=== PATIENT | female | born 1995 | race African-American/Black ===

== ENCOUNTER 2019-01-24 16:22 | Emergency (ER) | payer SELFPAY ==
[~2019-01-24] VITALS: Ht 157.5 cm; Wt 50.3 kg
[2019-01-24 16:32] VITALS: BP 127/85
[2019-01-24] MEDS ORDERED: HYDROcodone/APAP 5/325MG 1 TAB TABLET PO STA (16:36)
[2019-01-24] MEDS ORDERED: LIDOCAINE 2% 20 ML VIAL. IJ STA (16:36)
--- NOTE | 2019-01-24 17:11 | PHYS DOC ---
Past Medical History Past Medical History: No Pertinent History Alcohol Use: Occasionally Drug Use: Marijuana Adult General Chief Complaint Chief Complaint: LACERATION/AVULSION HPI HPI Patient is a 23 year old female who presents with laceration to the chin and below the lip after wrecking her skateboard at the [employer] around 1:00 PM. The patient denies loss of consciousness. The patient reports her pain as 4 out of 10 in severity and sharp. Review of Systems Review of Systems Constitutional: Denies fever or chills [] Eyes: Denies change in visual acuity, redness, or eye pain [] HENT: Reports R sided Jaw pain. Respiratory: Denies cough or shortness of breath [] Cardiovascular: No additional information not addressed in HPI [] GI: Denies abdominal pain, nausea, vomiting, bloody stools or diarrhea [] : Denies dysuria or hematuria [] Musculoskeletal: Denies back pain or joint pain [] Integument: Reports laceration to chin and below lip. Neurologic: Denies headache, focal weakness or sensory changes [] Endocrine: Denies polyuria or polydipsia [] Complete systems were reviewed and found to be within normal limits, except as documented in this note. Current Medications Current Medications Current Medications Medications (Trade) Dose Ordered Sig/Yordan Start Time Stop Time Status Last Admin Dose Admin Acetaminophen/ Hydrocodone Bitart (Lortab 5/325) 1 tab 1X STAT 01/24/19 16:36 01/24/19 16:45 DC 01/24/19 16:50 1 TAB Lidocaine HCl 20 ml 1X STAT 01/24/19 16:36 01/24/19 16:45 DC 01/24/19 16:51 20 ML Allergies Allergies Allergies Coded Allergies Type Severity Reaction Last Updated Verified No Known Drug Allergies 01/24/19 No Physical Exam Physical Exam Constitutional: Well developed, well nourished, no acute distress, non-toxic appearance. [] HENT: Normocephalic, atraumatic, bilateral external ears normal, oropharynx moist, no oral exudates, nose normal. [] Eyes: PERRLA, EOMI, conjunctiva normal, no discharge. [] Neck: Normal range of motion, no tenderness, supple, no stridor. [] Skin: Laceration to below the lip where tooth went through skin. Also has a laceration to the chin. Back: No tenderness, no CVA tenderness. [] Extremities: No tenderness, no cyanosis, no clubbing, ROM intact, no edema. [] Neurologic: Alert and oriented X 3, normal motor function, normal sensory function, no focal deficits noted. [] Psychologic: Affect normal, judgement normal, mood normal. [] Current Patient Data Vital Signs Vital Signs Date Time Temp Pulse Resp B/P (MAP) Pulse Ox O2 Delivery O2 Flow Rate FiO2 01/24/19 16:32 98.0 86 16 127/85 (99) 100 Room Air 98.0 Lab Values Laboratory Tests Test 01/24/19 16:56 POC Urine HCG, Qualitative Hcg negative (Negative) EKG EKG [] Radiology/Procedures Radiology/Procedures Indication: Chin, below lip and intramucosal Procedure: The patient was placed in the appropriate position and anesthesia around the 2% lidocaine. The area was then debrided with normal saline. The laceration was closed with 8 5-0 monofilament Ethilon simple interrupted sutures. 3, 5-0 monofilament Ethilon simple interrupted sutures below lip, and 3 intramucosal chromic gut sutures. The wound area was then dressed with wound covering and neosporin. Total repaired wound length: Chin was 2.5 cm, outside of lip was 1 cm, and intramucosal was 1.5 cm. Other Items: [OTHER ITEMS] The patient tolerated the procedure well Complications: None. [][facility] [address] [place] [address] IMAGING REPORT Signed PATIENT: ANTONIETTA BRADFORD ACCOUNT: [id number] : 1995 LOCATION: ER AGE: 23 SEX: F EXAM STATUS: REG ER ORD. PHYSICIAN: KACI DOMINGO APRN REASON: fall, jaw pain PROCEDURE: CT CERVICAL SPINE WO CONTRAST EXAM: Cervical spine CT without contrast; maxillofacial bone CT without contrast. HISTORY: Fall. TECHNIQUE: Computed tomographic images of the cervical spine and maxillofacial bones were obtained without contrast. Multiplanar reformatting was performed. *One or more of the following individualized dose reduction techniques were utilized for this examination: 1. Automated exposure control. 2. Adjustment of the mA and/or kV according to patient size. 3. Use of iterative reconstruction technique. COMPARISON: None. FINDINGS: Cervical spine: There is straightening of cervical lordosis, likely positional. There is no significant listhesis. The vertebral bodies are normal in height and the disc spaces are preserved. There is no fracture. There is no suspicious osseous lesion. There is no significant foraminal or central canal stenosis. The airways midline and widely patent. The lung apices are unremarkable. Maxillofacial bones: The orbits are unremarkable. The temporomandibular joints are intact. The ostiomeatal units are patent. There is leftward nasal septal deviation. 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 IMPRESSION: No evidence of acute cervical spine trauma or maxillofacial bone trauma. Electronically signed by: Pallavi Carlson MD (01/24/2019 5:44 PM) [facility] DICTATED and SIGNED BY: PALLAVI CARLSON MD DATE: 01/24/19 1744 Course & Med Decision Making Course & Med Decision Making Pertinent Labs and Imaging studies reviewed. (See chart for details) Will get CT C-spine and Maxillofacial. Will give Toradol and as long as there is not an open fracture will sew patient. Sutured patient will discharge. Dragon Disclaimer Dragon Disclaimer This electronic medical record was generated, in whole or in part, using a voice recognition dictation system. Departure Departure Impression: Primary Impression: Laceration of chin Additional Impressions: Laceration of mouth, internal Laceration of lower lip Skateboarder colliding with stationary object, initial encounter Disposition: 01 HOME, SELF-CARE Condition: STABLE Referrals: NO PCP (PCP) Patient Instructions: Facial Laceration Additional Instructions: Thank you for visiting [facility]. We appreciate you trusting us with your care. If any additional problems come up don't hesitate to return to visit us. Please follow up with your primary care provider so they can plan additional care if needed and know about the problem that you had. If symptoms worsen come back to the Emergency Department. Any concerning symptoms that start such as chest pain, shortness of air, weakness or numbness on one side of the body, running high fevers or any other concerning symptoms return to the ER. Please keep your wound dry, especially for the first 24 hours. After the first 24 hours you can wet the wound for a short time. Do not soak the wound or swim until the sutures have been removed. Please have the sutures removed in 5-7 days by your primary care doctor or return to ER for removal. Please keep the wound clean and change your bandage at least twice per day. You can use Neosporin on the wound to help reduce the chance of infection. If you notice signs of infection such as drainage from the wound (Pus), redness, increased pain or swelling return to ER for treatment. The sutures inside the mouth are absorbable. Problem Qualifiers Primary Impression: Laceration of chin Encounter type: initial encounter Qualified Codes: S01.81XA - Laceration without foreign body of other part of head, initial encounter Additional Impressions: Laceration of mouth, internal Encounter type: initial encounter Qualified Codes: S01.512A - Laceration without foreign body of oral cavity, initial encounter Laceration of lower lip Encounter type: initial encounter Qualified Codes: S01.511A - Laceration without foreign body of lip, initial encounter KACI DOMINGO APRN Jan 24, 2019 17:11
--- NOTE | 2019-01-24 17:47 | RAD ---
EXAM: Cervical spine CT without contrast; maxillofacial bone CT without contrast. HISTORY: Fall. TECHNIQUE: Computed tomographic images of the cervical spine and maxillofacial bones were obtained without contrast. Multiplanar reformatting was performed. *One or more of the following individualized dose reduction techniques were utilized for this examination: 1. Automated exposure control. 2. Adjustment of the mA and/or kV according to patient size. 3. Use of iterative reconstruction technique. COMPARISON: None. FINDINGS: Cervical spine: There is straightening of cervical lordosis, likely positional. There is no significant listhesis. The vertebral bodies are normal in height and the disc spaces are preserved. There is no fracture. There is no suspicious osseous lesion. There is no significant foraminal or central canal stenosis. The airways midline and widely patent. The lung apices are unremarkable. Maxillofacial bones: The orbits are unremarkable. The temporomandibular joints are intact. The ostiomeatal units are patent. There is leftward nasal septal deviation. 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 IMPRESSION: No evidence of acute cervical spine trauma or maxillofacial bone trauma. Electronically signed by: Pallavi Gonzalez MD (01/24/2019 5:44 PM) [place] [id number]
[2019-01-24] MEDS ORDERED: NEOMY/BACITR/POLYMYXIN OINT PACKET. TP STA (18:59)
[2019-01-24] MEDS ORDERED: DIPHTH,PERTUSS(ACELL),TET TOX 0.5 ML DISP.SYRIN. VAX IM ONE (19:00)
== END 2019-01-24 19:15 | disposition home or self-care (01) ==
LOC: ER 16:22
DX: S01.81XA Laceration without foreign body of other part of head, initial encounter (principal); S01.512A Laceration without foreign body of oral cavity, initial encounter; S01.511A Laceration without foreign body of lip, initial encounter; W18.09XA Striking against other object with subsequent fall, initial encounter; Y93.51 Activity, roller skating (inline) and skateboarding; Y92.830 Public park as the place of occurrence of the external cause; Y99.8 Other external cause status
CPT/HCPCS: 12013; 70486; 72125; 81025; 90471; 90715; 99284; J2001

== ENCOUNTER 2019-01-30 15:48 | Emergency (ER) | payer SELFPAY ==
[~2019-01-30] VITALS: Ht 157.5 cm; Wt 53.1 kg
[2019-01-30 17:01] VITALS: BP 131/77
[2019-01-30] MEDS ORDERED: Magic mouthwash SWSP (17:41)
--- NOTE | 2019-01-30 17:42 | PHYS DOC ---
Past Medical History Past Medical History: No Pertinent History (PRESTON CARROLL APRN) Alcohol Use: Occasionally Drug Use: Marijuana (PRESTON CARROLL APRN) Attending Signature I have participated in the care of this patient and I have reviewed and agree with all pertinent clinical information above including history, exam, and recommendations. (JOE CHEW MD) Adult General Chief Complaint Chief Complaint: SUTURE/STAPLE REMOVAL [facility] HPI Patient is a 23 year old AA female who presents to the emergency department with a request to have her sutures removed. Patient reports that she was seen and treated on January 242018 after wrecking her skateboard and had sutures placed in her chin. Patient complains of a sore area in her mouth where she had bit her lip. Patient states she ate a lot of seasoned and spicy food yesterday at [facility] and noticed that her lip became more sore. She denies any fever, bleeding, or drainage from the laceration sites. She rates the painful area inside of her lower lip a 10/10 on the pain scale. Pt states the only thing that has helped the pain is champagne and she is requesting medication to help reduce the discomfort.All other ROS is neg unless otherwise noted in HPI. (PRESTON CARROLL APRN) Review of Systems Review of Systems See Above (PRESTON CARROLL APRN) Allergies Allergies Allergies Coded Allergies Type Severity Reaction Last Updated Verified No Known Drug Allergies 01/24/19 No (JOE CHEW MD) Physical Exam Physical Exam See Above Constitutional: Well developed, well nourished, no acute distress, non-toxic appearance. [] HENT: Normocephalic, atraumatic, bilateral external ears normal, oropharynx moist, nose normal; ulceration noted over previous laceration site to mucosal surface of lower lip [] Eyes: PERRLA, EOMI, conjunctiva normal, no discharge. [] Neck: Normal range of motion, no stridor. [] Lungs & Thorax: Respirations even and unlabored, no retractions, no respiratory distress Skin: Warm, dry, no erythema, no rash; external laceration just below the lower lip edges are well approximated with minimal crusted drainage present, no surrounding erythema, no purulent drainage, no warmth; laceration to chin edges are well approximated with minimal crusted drainage present, no surrounding erythema and no purulent drainage, no warmth. [] Extremities: No cyanosis, ROM intact, Neurologic: Alert and oriented X 3, no focal deficits noted. [] Psychologic: Affect normal, judgement normal, mood agitated (PRESTON CARROLL APRN) Current Patient Data Vital Signs Vital Signs Date Time Temp Pulse Resp B/P (MAP) Pulse Ox O2 Delivery O2 Flow Rate FiO2 01/30/19 17:01 98.3 67 16 131/77 (95) 98 Room Air 98.3 (JOE CHEW MD) EKG EKG [] (PRESTON CARROLL APRN) Radiology/Procedures Radiology/Procedures Suture Removal by me: Sutures removed with tweezers and scissors without incident. A total of 3 sutures were removed from the laceration below the lip and a total of 8 sutures were removed from the chin laceration. Wound shows no evidence of infection, foreign body, neurologic injury, vascular injury, open joint or tendon laceration. Pt instructed to continue application of antibiotic ointment until sites are completely healed. Then use Mederma or Vitamin E capsules to help reduce scarring. Recommend wearing sunblock if outdoors to reduce scarring. (PRESTON CARROLL APRN) Course & Med Decision Making Course & Med Decision Making Pertinent Labs and Imaging studies reviewed. (See chart for details) [] (PRESTON CARROLL APRN) Dragon Disclaimer Dragon Disclaimer This electronic medical record was generated, in whole or in part, using a voice recognition dictation system. (PRESTON CARROLL APRN) Departure Departure Impression: Primary Impression: Encounter for removal of sutures Disposition: HOME, SELF-CARE Condition: STABLE Referrals: NO PCP (PCP) Patient Instructions: Oral Ulcers, Suture Removal-Brief Additional Instructions: Fill the prescription and use as directed. Avoid spicy, crunchy, acidy, and carbonated foods/ beverages. Apply vitamin E to the laceration sites to reduce scarring. Follow up with your primary care doctor as needed. Return to the ER if symptoms worsen. Scripts [Magic mouthwash] No Conflict Check 10 ML SWSP QID PRN for PAIN, #180 ML 0 Refills equal parts maalox, viscous lidocaine, and benadryl elixir. Prov: PRESTON CARROLL APRN 01/30/19 PRESTON CARROLL APRN Jan 30, 2019 17:41 JOE CHEW MD Feb 01, 2019 02:15
== END 2019-01-30 17:48 | disposition home or self-care (01) ==
LOC: ER 15:48
DX: S01.81XD Laceration without foreign body of other part of head, subsequent encounter (principal); F12.90 Cannabis use, unspecified, uncomplicated; W27.8XXD Contact with other nonpowered hand tool, subsequent encounter
CPT/HCPCS: 99282